=== PATIENT | female | born 1940 | race Caucasian/White ===

== ENCOUNTER → 2016-04-15 | Outpatient (CLI) | payer BC ==
[~2016-04-15] MED LIST: ATOR80TA PO; B-CO1TAB29 PO; CHOL100010 PO; CIPR-255 PO; GABA-112 PO; INSUINJ14 SC; INSUINJ4 SC; LEVO75TA PO; PENT400T PO
--- NOTE | 2016-04-15 16:43 | MAMMOGRAPHY REPORT ---
BILATERAL DIGITAL SCREENING MAMMOGRAM WITH CAD: 04/15/2016 CLINICAL HISTORY: Routine screening examination. TECHNIQUE: Bilateral CC and MLO views were obtained. Current study was also evaluated with a Comput er Aided Detection (CAD) system. COMPARISON: Comparison is made to exams dated: 04/05/2015 mammogram, 04/04/2014 mammogram, 05/25/2012 mammogram, 05/22/2011 mammogram, 05/17/2010 mammogram - [facility], and 11/02/2008. BREAST COMPOSITION: The tissue of both breasts is heterogeneously dense, which may obscure small ma sses. FINDINGS: There are diffuse rodlike secretory calcifications and benign rim calcifications througho ut the breasts. There is a newly visualized 6.5 mm mass in the lower outer posterior right breast, for which additio nal spot compression tomosynthesis views and possibly ultrasound are recommended. No other new suspicious mass, architectural distortion or cluster of microcalcifications is seen kin aterally. IMPRESSION: ACR BI-RADS CATEGORY 0: INCOMPLETE EVALUATION: NEED ADDITIONAL IMAGING EVALUATION The newly visualized 6.5 mm mass in the right breast needs additional evaluation. The patient will be called to schedule an appointment. Approximately 10% of breast cancers are not detected with mammography. A negative mammographic repor t should not delay biopsy if a clinically suggestive mass is present. Betsey Thorne M.D. ay/:04/15/2016 15:53:39 Master Control Engineer: Sandra GUZMÁN)([place]), [facility] letter sent: Addl Imaging 0 BI-RADS Code: ACR BI-RADS Category 0: Incomplete Evaluation: Need Additional Imaging Evaluation
== END | disposition home or self-care (01) ==
LOC: C.MAMM 14:37
PROVIDERS: ATTEND Family Medicine
DX: Z12.31 Encounter for screening mammogram for malignant neoplasm of breast (principal); N63 Unspecified lump in breast

== ENCOUNTER → 2016-04-23 | Outpatient (CLI) | payer BC ==
--- NOTE | 2016-04-23 16:04 | MAMMOGRAPHY REPORT ---
UNILATERAL RIGHT DIGITAL DIAGNOSTIC MAMMOGRAM TOMOSYNTHESIS AND TARGETED RIGHT ULTRASOUND: 04/23/2016 CLINICAL HISTORY: 75-year-old woman called back from screening mammography for a 6.5 mm mass in the far posterior lower outer right breast. No strong family history of breast cancer. TECHNIQUE: Breast tomosynthesis in addition to standard 2D mammography was performed. COMPARISON: Comparison is made to exams dated: 04/15/2016 mammogram, 04/05/2015 mammogram, 04/04/2014 mammogram, and 05/25/2012 mammogram - [facility]. BREAST COMPOSITION: The tissue of the right breast is heterogeneously dense, which may obscure smal l masses. FINDINGS: Spot compression CC and MLO tomosynthesis images with reconstructed CC view of the right b reast were obtained. There is persistence of an oval circumscribed 5.8 x 3.8 mm low-density mass in the retroglandular fat of the lower outer right breast. When comparing to prior available mammogra ms, this appearance is somewhat similar dating back to at least 05/20/2011. There is no associated architectural distortion or clustered micro-calcification. Further evaluation with ultrasound was p erformed. Targeted ultrasound was performed throughout the lower outer quadrant of the right breast including the 6:00 and 9:00 axes. Normal fibroglandular tissue is seen without a discrete solid or cystic mas s. IMPRESSION: ACR-BI-RADS CATEGORY 3: PROBABLY BENIGN, TARGETED ULTRASOUND ACR-BI-RADS CATEGORY 3: AK OBABLY BENIGN There is a persistent benign-appearing oval circumscribed 6 x 4 mm mass in the lower outer posterior right breast, which may have been present on prior mammograms but appears slightly more conspicuous . No suspicious sonographic correlate was identified. Given the benign mammographic features of ci rcumscribed orders an oval shape this is most likely benign even though no sonographic correlate was seen. A short interval follow-up right mammogram including tomosynthesis images and repeat targete d ultrasound is recommended to ensure stability in 6 months. These results and recommendations were discussed with the patient at the time of the exam. Approximately 10% of breast cancers are not detected with mammography. A negative mammographic repor t should not delay biopsy if a clinically suggestive mass is present. Betsey Thorne M.D. ay/:04/23/2016 15:04:52 Fuel Cell Battery Technician: Sandra RODRÍGUEZ(R)([place]), [facility] letter sent: Follow Up Recommended 3 BI-RADS Code: ACR-BI-RADS Category 3: Probably Benign Ultrasound BI-RADS: ACR-BI-RADS Category 3: P robably Benign
== END | disposition home or self-care (01) ==
LOC: C.MAMM 09:42
PROVIDERS: ATTEND Family Medicine
DX: N63 Unspecified lump in breast (principal)